=== PATIENT | female | born 1990 | race Caucasian/White ===

== ENCOUNTER → 2020-08-23 08:45 | Outpatient (CLI) | payer BC, SELFPAY ==
--- NOTE | ~2020-08-23 | US_ITS ---
EXAMINATION: US thyroid DATE: 08/23/2020 09:22 INDICATION: Thyroid nodule. TECHNIQUE: Multiple ultrasound images of the thyroid were obtained. COMPARISON: Thyroid ultrasound 08/02/2019, 04/29/2018 FINDINGS: The right thyroid lobe measures 4.7 x 1.3 x 1.3 cm. The left thyroid lobe measures 4.6 x 1.3 x 1.3 c m. The thyroid demonstrates diffusely heterogeneous echogenicity. Vascularity is increased. In the t hyroid isthmus, there is a 6 mm solid, hypoechoic, [id number] nodule with smooth margin without echogenic foci (TI-RADS TR4). IMPRESSION: 1. Heterogeneous, hypervascular thyroid, likely chronic lymphocytic (Swathi) thyroiditis. 2. Small thyroid nodule, likely not clinically significant. No follow-up is needed. Reviewed, dictated and finalized at location A. EDITED PHARMACY TECHNICIAN IMPRESSION: 1. Heterogeneous, hypervascular thyroid, likely chronic lymphocytic (Swathi) thyroiditis. 2. Small thyroid nodule, likely not clinically significant. No follow-up is nee ded.
== END ==
PROVIDERS: Visit Provider Internal Medicine Endocrinology, Diabetes & Metabolism
DX: E04.1 Nontoxic single thyroid nodule (principal)
CPT/HCPCS: 76536

== ENCOUNTER → 2021-10-31 08:59 | Outpatient (CLI) | payer BC, SELFPAY ==
--- NOTE | ~2021-10-31 | US_ITS ---
EXAMINATION: US thyroid DATE: 10/31/2021 09:16 INDICATION: Goiter TECHNIQUE: Multiple ultrasound images of the thyroid were obtained. COMPARISON: 08/23/2020 FINDINGS: The right thyroid lobe measures 4.2 x 1.8 x 1.3 cm. The left thyroid lobe measures 0.4 x 1.5 x 1.3 c m. 3 mm and 4 mm solid hypoechoic nodules with ill-defined margins at the superior left thyroid (TI- RADS 4, moderately suspicious , FNA if >=1.5 cm, annual followup is >=1 cm). Additional 5 mm very hyp oechoic nodule at the thyroid isthmus, uncertain whether solid versus could represent an additional T I RADS 4 nodule or more likely cystic TI-RADS 1. There is heterogeneous echogenicity with coarsened e chotexture and increased vascular flow throughout both thyroid lobes. IMPRESSION: 1. 10 seen is a heterogeneous hypervascular thyroid likely chronic lymphocytic (Swathi) thyroiditi s. 2. No significant change in a few 5 mm or smaller TI RADS 4 thyroid nodules or potentially pseudonodu les which do not meet criteria for biopsy or follow-up. Reviewed, dictated and finalized at location A. S MANAGER IMPRESSION: 1. 10 seen is a heterogeneous hypervascular thyroid likely chronic lymphocytic (Swathi) thyroiditis. 2. No significant change in a few 5 mm or smaller TI RADS 4 thyroid nodules or potentially pseudonodules which do not meet criteria for biopsy or follow-up.
== END ==
PROVIDERS: Visit Provider Internal Medicine Endocrinology, Diabetes & Metabolism
DX: E04.2 Nontoxic multinodular goiter (principal)
CPT/HCPCS: 76536

== ENCOUNTER → 2022-12-28 12:50 | Outpatient (CLI) | payer BC, SELFPAY ==
--- NOTE | ~2022-12-28 | US_ITS ---
US thyroid INDICATION: Nontoxic goiter TECHNIQUE: Real-time sonographic images of the thyroid gland were obtained. COMPARISON: Ultrasound dated 10/31/2021 FINDINGS: The right thyroid lobe measures 5.3 x 1.5 x 1.2 cm. The left thyroid lobe measures 4.1 x 1 .4 x 1.2 cm. In the right lobe there is an oval hypoechoic mass measuring 9 x 5 x 8 mm which appears solid, wider than tall, ill-defined margins and no microcalcifications, TR 4, not definitely seen on prior examination although does not meet criteria for biopsy. In the left lobe there is a stable 4 x 4 x 3 mm oval hypoechoic mass with ill-defined margins, TR 4. In the isthmus there is an oval hypoech oic mass measuring 5 mm with circumscribed margins, wider than tall and no internal calcifications, l ikely benign. There is increased vascularity in both lobes. IMPRESSION: 1. Hypervascular mildly enlarged thyroid gland with multiple bilateral thyroid masses which are like ly benign. Consider follow-up ultrasound in 12 months. Reviewed, dictated and finalized at location A. IMPRESSION: 1. Hypervascular mildly enlarged thyroid gland with multiple bilateral thyroid masses which are likely benign. Consider follow-up ultrasound in 12 months.
== END ==
PROVIDERS: PCP Internal Medicine Endocrinology, Diabetes & Metabolism; Visit Provider Internal Medicine Endocrinology, Diabetes & Metabolism
DX: E04.9 Nontoxic goiter, unspecified (principal)
CPT/HCPCS: 76536

== ENCOUNTER → 2023-07-04 14:11 | Outpatient (CLI) | payer OTHER, SELFPAY ==
--- NOTE | ~2023-07-04 | US_ITS ---
EXAMINATION: US thyroid DATE: 07/04/2023 14:30 INDICATION: Nodular thyroid. Swathi thyroiditis. TECHNIQUE: Multiple ultrasound images of the thyroid were obtained. COMPARISON: Ultrasound 12/28/2022 FINDINGS: The right thyroid lobe measures 4.8 x 1.4 x 1.5 cm. The left thyroid lobe measures 4.1 x 1.2 x 1.3 c m. In the thyroid isthmus, there is a 7 mm solid, hypoechoic, wider than tall nodule with smooth mar gin without echogenic foci (TI-RADS TR4). The thyroid demonstrates heterogeneous hypoechogenicity. Va scularity is normal. IMPRESSION: 1. Small thyroid nodule, likely not clinically significant. No follow-up is needed. 2. Heterogeneous thyroid, likely chronic lymphocytic (Swathi) thyroiditis. Reviewed, dictated and finalized at location E. IMPRESSION: 1. Small thyroid nodule, likely not clinically significant. No follow-up is nee ded. 2. Heterogeneous thyroid, likely chronic lymphocytic (Swathi) thyroiditis.
== END ==
DX: E04.1 Nontoxic single thyroid nodule (principal)
CPT/HCPCS: 76536